=== PATIENT | female | born 1970 | race Caucasian/White ===

== ENCOUNTER 2022-08-15 14:59 | Outpatient (CLI) | payer BC | END 2022-08-15 15:00 | disposition home or self-care (01) | LOC: CSHMAMMO 14:59 | PROVIDERS: ATTEND Family Medicine | DX: Z12.31 Encounter for screening mammogram for malignant neoplasm of breast (principal); R92.1 Mammographic calcification found on diagnostic imaging of breast | CPT/HCPCS: 77063; 77067 ==

== ENCOUNTER → 2022-08-31 | Day surgery (SDC) | payer BC ==
[2022-08-29 10:51] VITALS: BMI 32.9
[~2022-08-31] MED LIST: Lidocaine 1% PF 5 ML VIAL ONE; PROPOFOL 20 ML ONE
== END ==
LOC: CSHSDC 08:22
PROVIDERS: ATTEND Surgery
PROC: 0DJD8ZZ Inspection of Lower Intestinal Tract, Via Natural or Artificial Opening Endoscopic (ICD-10-PCS; principal; 2022-08-31)
DX: Z12.11 Encounter for screening for malignant neoplasm of colon (principal); D64.9 Anemia, unspecified; E78.00 Pure hypercholesterolemia, unspecified; Z98.84 Bariatric surgery status; Z88.2 Allergy status to sulfonamides
CPT/HCPCS: J2704